=== PATIENT | male | born 1945 | race African-American/Black ===

== ENCOUNTER 2021-11-22 10:57 | Emergency (ER) | payer MEDICARE ==
[~2021-11-22] VITALS: Ht 177.8 cm; Wt 80.0 kg
[2021-11-22] MEDS ORDERED: AMIODARONE HCL 150 MG in DEXT 5% WATER 100 ML IV ONE (12:00)
[2021-11-22 12:29] LABS: BASOPHILS % 0.4 % (0.0-2.0); EOSINOPHILS % 1.7 % (0.0-5.0); HEMATOCRIT. 30.5 % (42.0-52.0); HEMOGLOBIN. 9.6 g/dL (14.0-18.0); LYMPHOCYTES % 33.8 % (20.0-50.0); MEAN CORPUSCULAR HEMOGLOBIN 31.3 pg (28.0-32.0); MEAN CORPUSCULAR VOLUME 99.3 fL (80.0-94.0); MEAN PLATELET VOLUME 9.4 fl (7.4-10.4); MONOCYTES % 6.8 % (2.0-8.0); NEUTROPHILS % 57.3 % (40.0-76.0); PLATELET 204 x1000/uL (130-400); RED BLOOD CELL COUNT 3.07 mill/uL (4.7-6.1); RED CELL DISTRIBUTION WIDTH 15.5 % (11.6-14.6)
[2021-11-22 12:30] LABS: CHLORIDE 114 mEq/L (98-107)
[2021-11-22 15:48] VITALS: BP 130/56
== END 2021-11-22 16:32 | disposition short-term general hospital (02) ==
LOC: ER 10:57 → CANBEDREQ 22:34
DX: R55 Syncope and collapse (principal); S00.83XA Contusion of other part of head, initial encounter; W01.198A Fall on same level from slipping, tripping and stumbling with subsequent striking against other object, initial encounter; Y93.01 Activity, walking, marching and hiking; Y92.510 Bank as the place of occurrence of the external cause; R00.0 Tachycardia, unspecified; D64.9 Anemia, unspecified; N28.9 Disorder of kidney and ureter, unspecified; R79.89 Other specified abnormal findings of blood chemistry; Z20.822 Contact with and (suspected) exposure to COVID-19; I44.7 Left bundle-branch block, unspecified; E11.9 Type 2 diabetes mellitus without complications
CPT/HCPCS: 36415; 71045; 80053; 82962; 83880; 84484; 85025; 87426; 93005; 99291; C9803; J0282; J7060

== ENCOUNTER 2022-11-23 19:45 | Inpatient (IN) | payer MEDICARE ==
[~2022-11-23] VITALS: Ht 175.3 cm; Wt 74.8 kg
[~2022-11-23 19:45] MED LIST: ALLO100T57 PO; APIX5TAB PO; CARV3.1242 MT; COR12 PO; FAMO20TA8 PO; FURO20TA4 PO; METF-414 MT; METR-167 MT; POTA-189 PO
[2022-11-23 22:02] LABS: HEMATOCRIT. 22.4 % (42.0-52.0); HEMOGLOBIN. 7.1 g/dL (14.0-18.0); MEAN CORPUSCULAR HEMOGLOBIN 31.4 pg (28.0-32.0); MEAN CORPUSCULAR HGB CONC 31.7 g/dL (31.0-37.0); MEAN PLATELET VOLUME 9.4 fl (7.4-10.4); PLATELET 357 x1000/uL (130-400); RED BLOOD CELL COUNT 2.26 mill/uL (4.7-6.1); RED CELL DISTRIBUTION WIDTH 20.7 % (11.6-14.6); WHITE BLOOD COUNT 19.4 x1000/uL (4.5-11.0)
[2022-11-23 22:03] LABS: DIFFERENTIAL COMMENT 1
[2022-11-23 22:17] LABS: CHLORIDE 112 mEq/L (98-107); INDEX HEMOLYSI 1 (1-3); INDEX ICTERIC 1 (1-4); INDEX LIPEMIC 1 (1-3); POTASSIUM 3.7 mEq/L (3.5-5.1); SODIUM 144 mEq/L (136-145)
[2022-11-23 22:27] LABS: ALANINE AMINOTRANSFERASE 11 IU/L (13-61); ALBUMIN 1.9 g/dL (3.4-5.0); ASPARTATE AMINOTRANSFERASE 27 IU/L (15-37); BILIRUBIN TOTAL 1.1 mg/dL (0.1-1.0); CALCIUM 7.7 mg/dL (8.5-10.1); CARBON DIOXIDE 28 mEq/L (21-32); CREATININE 1.6 mg/dL (0.6-1.3); GLUCOSE 80 mg/dL (70-105); PROTEIN TOTAL 5.8 g/dL (6.0-8.3); UREA NITROGEN BLOOD 16 mg/dL (7-21)
[2022-11-23 22:34] LABS: TROPONIN I HIGH SENSITIVITY 107 ng/L (<78)
[2022-11-23 22:42] LABS: PLATELET ESTIMATE NORMAL
[2022-11-23 22:43] LABS: ANISOCYTOSIS 2+; HYPOCHROMASIA 1+; OVALOCYTES 1+
[2022-11-24] MEDS ORDERED: SODIUM CHLORIDE 0.9% 1,000 ML IV ONE (00:15)
[2022-11-24] MEDS ORDERED: METRONIDAZOLE 500 MG PREMIX 100 ML IV ONE (00:15)
[2022-11-24] MEDS ORDERED: CEFEPIME 2,000 MG in DEXT 5% WATER 100 ML IV ONE (00:15)
[2022-11-24] MEDS ORDERED: ACETAMINOPHEN 325MG TABLET PO PRN ×2 (09:15)
[2022-11-24] MEDS ORDERED: ONDANSETRON HCL 4MG/2ML INJ IV PRN (09:15)
[2022-11-24] MEDS ORDERED: ENOXAPARIN 40MG/0.4ML SYR SUBCUT SCH (09:15)
[2022-11-24] MEDS: ALLOPURINOL 100 MG TABLET PO SCH (09:30)
[2022-11-24] MEDS: FAMOTIDINE 20MG TABLET PO SCH (09:30)
[2022-11-24] MEDS: CARVEDILOL 12.5MG TABLET PO SCH ×2 (09:30→17:00)
[2022-11-24] MEDS: FUROSEMIDE 20MG TABLET PO SCH (09:30)
[2022-11-24] MEDS: METRONIDAZOLE 500MG TABLET PO SCH ×2 (10:00→22:12)
[2022-11-24 16:04] VITALS: BP 132/82; PULSE 72; RESP 20; TEMP 97.8
[2022-11-24 16:30] VITALS: BP 132/82; PULSE 78; RESP 22; TEMP 98.2
[2022-11-24 20:00] VITALS: BP 99/62; PULSE 80; RESP 18; TEMP 97
[2022-11-24] MEDS ORDERED: CEFTRIAXONE 2GM/50ML (ADDEASE) 50 ML IV SCH (22:30)
[2022-11-25] VITALS: BP 103/75; PULSE 101; RESP 20; TEMP 97.1
[2022-11-25 04:00] VITALS: BP 139/70; PULSE 109; RESP 20; TEMP 97
[2022-11-25 08:00] VITALS: BP 125/61; PULSE 98; RESP 20; TEMP 97.5
[2022-11-25] MEDS: CEFTRIAXONE 2 G in DEXTROSE 5% WATER 50 ML IV SCH ×2 (09:00→11:17)
[2022-11-25] MEDS: FUROSEMIDE 20MG TABLET PO SCH (11:16)
[2022-11-25] MEDS: METRONIDAZOLE 500MG TABLET PO SCH ×2 (11:16→22:08)
[2022-11-25] MEDS: FAMOTIDINE 20MG TABLET PO SCH (11:16)
[2022-11-25] MEDS: ALLOPURINOL 100 MG TABLET PO SCH (11:16)
[2022-11-25] MEDS: CARVEDILOL 12.5MG TABLET PO SCH ×2 (11:16→17:44)
[2022-11-25 12:00] VITALS: BP 140/71; PULSE 83; RESP 20; TEMP 97.9
[2022-11-25 16:00] VITALS: BP 139/58; PULSE 75; RESP 20; TEMP 98.4
[2022-11-25 20:00] VITALS: BP 122/69; PULSE 99; RESP 18; TEMP 98.5
[2022-11-26] VITALS (8 sets, daily range): BP systolic 129–158; BP diastolic 72–93; PULSE 80–103; RESP 18–20; TEMP 97.8–99.7
[2022-11-26 07:21] LABS: MEAN CORPUSCULAR HEMOGLOBIN 31.9 pg (28.0-32.0); MEAN CORPUSCULAR HGB CONC 31.9 g/dL (31.0-37.0); MEAN CORPUSCULAR VOLUME 99.9 fL (80.0-94.0); MEAN PLATELET VOLUME 9.9 fl (7.4-10.4); PLATELET 293 x1000/uL (130-400); RED BLOOD CELL COUNT 2.05 mill/uL (4.7-6.1); RED CELL DISTRIBUTION WIDTH 21.1 % (11.6-14.6); WHITE BLOOD COUNT 15.7 x1000/uL (4.5-11.0)
[2022-11-26 07:31] LABS: CALCIUM 7.8 mg/dL (8.5-10.1); POTASSIUM 3.2 mEq/L (3.5-5.1)
[2022-11-26 07:35] LABS: CREATININE 1.4 mg/dL (0.6-1.3); PHOSPHORUS 2.9 mg/dL (2.5-4.9)
[2022-11-26 08:28] LABS: DIFFERENTIAL COMMENT 1
[2022-11-26 08:32] LABS: HEMATOCRIT. 20.5 % (42.0-52.0); HEMOGLOBIN. 6.5 g/dL (14.0-18.0)
[2022-11-26] MEDS: FUROSEMIDE 20MG TABLET PO SCH (09:23)
[2022-11-26] MEDS: ALLOPURINOL 100 MG TABLET PO SCH (09:24)
[2022-11-26] MEDS: CARVEDILOL 12.5MG TABLET PO SCH ×2 (09:24→17:52)
[2022-11-26] MEDS: CEFTRIAXONE 2 G in DEXTROSE 5% WATER 50 ML IV SCH (09:24)
[2022-11-26] MEDS: METRONIDAZOLE 500MG TABLET PO SCH ×2 (09:24→21:00)
[2022-11-26] MEDS: FAMOTIDINE 20MG TABLET PO SCH (09:24)
[2022-11-26] MEDS ORDERED: POTASSIUM CHLORIDE 20MEQ TABLET SR PO NR (09:30)
[2022-11-26 14:12] LABS: ANISOCYTOSIS 2+; HYPOCHROMASIA 2+
[2022-11-26 14:13] LABS: PLATELET ESTIMATE NORMAL
[2022-11-27] VITALS (8 sets, daily range): BP systolic 130–159; BP diastolic 74–92; PULSE 82–96; RESP 18–20; TEMP 97.8–99.5
[2022-11-27 08:20] LABS: HEMATOCRIT 27.9 % (42.0-52.0); HEMOGLOBIN 9.1 g/dL (14.0-18.0)
[2022-11-27] MEDS: CEFTRIAXONE 2 G in DEXTROSE 5% WATER 50 ML IV SCH (08:33)
[2022-11-27] MEDS: CARVEDILOL 12.5MG TABLET PO SCH ×2 (08:33→16:55)
[2022-11-27] MEDS: METRONIDAZOLE 500MG TABLET PO SCH ×2 (08:33→21:16)
[2022-11-27] MEDS: ALLOPURINOL 100 MG TABLET PO SCH (08:33)
[2022-11-27] MEDS: FAMOTIDINE 20MG TABLET PO SCH (08:34)
[2022-11-27] MEDS: FUROSEMIDE 20MG TABLET PO SCH (08:34)
[2022-11-27] MEDS ORDERED: LIDOCAINE HCL 1% 10 MG/ML 10ML VIAL ONE (10:31)
[2022-11-27 22:15] LABS: HEMATOCRIT. 26.8 % (42.0-52.0); HEMOGLOBIN. 8.7 g/dL (14.0-18.0); INR 1.3; MEAN CORPUSCULAR HEMOGLOBIN 31.6 pg (28.0-32.0); MEAN CORPUSCULAR HGB CONC 32.3 g/dL (31.0-37.0); MEAN CORPUSCULAR VOLUME 97.7 fL (80.0-94.0); MEAN PLATELET VOLUME 10.1 fl (7.4-10.4); PLATELET 267 x1000/uL (130-400); PROTHROMBIN TIME 13.4 sec (9.6-11.0); RED BLOOD CELL COUNT 2.74 mill/uL (4.7-6.1); RED CELL DISTRIBUTION WIDTH 21.4 % (11.6-14.6); WHITE BLOOD COUNT 12.3 x1000/uL (4.5-11.0)
[2022-11-27 22:19] LABS: CHLORIDE 116 mEq/L (98-107); INDEX HEMOLYSI 1 (1-3); INDEX ICTERIC 1 (1-4); INDEX LIPEMIC 1 (1-3); POTASSIUM 3.5 mEq/L (3.5-5.1); SODIUM 144 mEq/L (136-145)
[2022-11-27 22:24] LABS: CALCIUM 8.2 mg/dL (8.5-10.1); CARBON DIOXIDE 23 mEq/L (21-32); CREATININE 1.3 mg/dL (0.6-1.3); GLUCOSE 95 mg/dL (70-105); PHOSPHORUS 2.7 mg/dL (2.5-4.9); UREA NITROGEN BLOOD 16 mg/dL (7-21)
[2022-11-27 22:26] LABS: DIFFERENTIAL COMMENT 1
[2022-11-28] VITALS: BP 118/66; PULSE 98; RESP 18; TEMP 98.6
[2022-11-28 04:00] VITALS: BP 139/80; PULSE 89; RESP 20; TEMP 98.6
[2022-11-28 05:37] LABS: HEMATOCRIT. 26.1 % (42.0-52.0); HEMOGLOBIN. 8.7 g/dL (14.0-18.0); MEAN CORPUSCULAR HEMOGLOBIN 31.9 pg (28.0-32.0); MEAN CORPUSCULAR HGB CONC 33.3 g/dL (31.0-37.0); MEAN CORPUSCULAR VOLUME 95.8 fL (80.0-94.0); MEAN PLATELET VOLUME 10.1 fl (7.4-10.4); PLATELET 223 x1000/uL (130-400); RED BLOOD CELL COUNT 2.73 mill/uL (4.7-6.1); RED CELL DISTRIBUTION WIDTH 20.9 % (11.6-14.6); WHITE BLOOD COUNT 12.1 x1000/uL (4.5-11.0)
[2022-11-28 06:35] LABS: CHLORIDE 114 mEq/L (98-107); INDEX HEMOLYSI 1 (1-3); INDEX ICTERIC 1 (1-4); INDEX LIPEMIC 1 (1-3); POTASSIUM 3.3 mEq/L (3.5-5.1); SODIUM 145 mEq/L (136-145)
[2022-11-28 06:49] LABS: DIFFERENTIAL COMMENT 1
[2022-11-28 06:54] LABS: CALCIUM 7.6 mg/dL (8.5-10.1); CARBON DIOXIDE 24 mEq/L (21-32); CREATININE 1.3 mg/dL (0.6-1.3); GLUCOSE 127 mg/dL (70-105); PHOSPHORUS 2.7 mg/dL (2.5-4.9); UREA NITROGEN BLOOD 16 mg/dL (7-21)
[2022-11-28 08:00] VITALS: BP 156/85; PULSE 106; RESP 18; TEMP 97.8
[2022-11-28] MEDS: CEFTRIAXONE 2 G in DEXTROSE 5% WATER 50 ML IV SCH (08:37)
[2022-11-28] MEDS: ALLOPURINOL 100 MG TABLET PO SCH (08:37)
[2022-11-28] MEDS: FUROSEMIDE 20MG TABLET PO SCH (08:37)
[2022-11-28] MEDS: FAMOTIDINE 20MG TABLET PO SCH (08:37)
[2022-11-28] MEDS: METRONIDAZOLE 500MG TABLET PO SCH ×2 (08:37→21:45)
[2022-11-28] MEDS: CARVEDILOL 12.5MG TABLET PO SCH ×2 (08:37→16:50)
[2022-11-28] MEDS ORDERED: POTASSIUM CHLORIDE 20MEQ TABLET SR PO NR (10:30)
[2022-11-28 10:54] LABS: ANISOCYTOSIS 2+; PLATELET ESTIMATE NORMAL
[2022-11-28 12:00] VITALS: BP 150/57; PULSE 94; RESP 18; TEMP 100.1
[2022-11-28 16:00] VITALS: BP 113/83; PULSE 60; RESP 20; TEMP 99.6
[2022-11-28 17:04] LABS: PLATELET ESTIMATE NORMAL
[2022-11-28 17:05] LABS: ANISOCYTOSIS 2+; HYPOCHROMASIA 1+
[2022-11-28 17:06] LABS: OVALOCYTES 1+
[2022-11-29 04:00] VITALS: BP 89/50; PULSE 90; RESP 20; TEMP 97.1
[2022-11-29 07:29] LABS: MEAN CORPUSCULAR HEMOGLOBIN 30.7 pg (28.0-32.0); MEAN CORPUSCULAR HGB CONC 31.6 g/dL (31.0-37.0); MEAN CORPUSCULAR VOLUME 97.3 fL (80.0-94.0); MEAN PLATELET VOLUME 10.3 fl (7.4-10.4); PLATELET 206 x1000/uL (130-400); RED CELL DISTRIBUTION WIDTH 21.2 % (11.6-14.6); WHITE BLOOD COUNT 15.3 x1000/uL (4.5-11.0)
[2022-11-29 07:30] LABS: DIFFERENTIAL COMMENT 1
[2022-11-29 07:31] LABS: HEMATOCRIT. 33.1 % (42.0-52.0); HEMOGLOBIN. 10.4 g/dL (14.0-18.0)
[2022-11-29 08:00] VITALS: BP 182/91; PULSE 89; RESP 20; TEMP 97.6
[2022-11-29 08:33] LABS: CHLORIDE 114 mEq/L (98-107); INDEX HEMOLYSI 1 (1-3); INDEX ICTERIC 1 (1-4); INDEX LIPEMIC 1 (1-3); POTASSIUM 3.8 mEq/L (3.5-5.1); SODIUM 144 mEq/L (136-145)
[2022-11-29 08:38] LABS: CALCIUM 7.6 mg/dL (8.5-10.1); CARBON DIOXIDE 25 mEq/L (21-32); CREATININE 1.3 mg/dL (0.6-1.3); GLUCOSE 108 mg/dL (70-105); PHOSPHORUS 2.5 mg/dL (2.5-4.9); UREA NITROGEN BLOOD 18 mg/dL (7-21)
[2022-11-29] MEDS: CARVEDILOL 12.5MG TABLET PO SCH ×2 (09:35→17:20)
[2022-11-29] MEDS: FUROSEMIDE 20MG TABLET PO SCH (09:35)
[2022-11-29] MEDS: ALLOPURINOL 100 MG TABLET PO SCH (09:35)
[2022-11-29] MEDS: CEFTRIAXONE 2 G in DEXTROSE 5% WATER 50 ML IV SCH (09:35)
[2022-11-29] MEDS: FAMOTIDINE 20MG TABLET PO SCH (09:35)
[2022-11-29] MEDS: METRONIDAZOLE 500MG TABLET PO SCH ×2 (09:35→20:43)
[2022-11-29 12:00] VITALS: BP 117/80; PULSE 97; RESP 2; TEMP 97.2
[2022-11-29 16:00] VITALS: BP 159/90; PULSE 102; RESP 20; TEMP 97.2
[2022-11-29 16:41] LABS: ANISOCYTOSIS 1+; PLATELET ESTIMATE NORMAL
[2022-11-29 20:00] VITALS: BP 163/107; PULSE 76; RESP 22; TEMP 96.9
[2022-11-30] VITALS: BP 180/100; PULSE 69; RESP 20; TEMP 96.8
[2022-11-30 04:00] VITALS: BP 172/101; PULSE 77; RESP 20; TEMP 97
[2022-11-30 08:00] VITALS: BP 169/82; PULSE 110; RESP 20; TEMP 97.6
[2022-11-30] MEDS: FUROSEMIDE 20MG TABLET PO SCH (09:52)
[2022-11-30] MEDS: FAMOTIDINE 20MG TABLET PO SCH (09:52)
[2022-11-30] MEDS: METRONIDAZOLE 500MG TABLET PO SCH ×2 (09:52→21:23)
[2022-11-30] MEDS: ALLOPURINOL 100 MG TABLET PO SCH (09:52)
[2022-11-30] MEDS: CEFTRIAXONE 2 G in DEXTROSE 5% WATER 50 ML IV SCH (09:53)
[2022-11-30] MEDS: CARVEDILOL 12.5MG TABLET PO SCH ×2 (09:53→17:51)
[2022-11-30 12:00] VITALS: BP 165/81; PULSE 82; RESP 20; TEMP 97.3
[2022-11-30 16:00] VITALS: BP 156/72; PULSE 89; RESP 20; TEMP 97.4
[2022-11-30 20:00] VITALS: BP 150/99; PULSE 89; RESP 20; TEMP 97.2
[2022-12-01] VITALS: BP 136/89; PULSE 84; RESP 18; TEMP 97.8
[2022-12-01 04:00] VITALS: BP 149/82; PULSE 89; RESP 18; TEMP 99.7
[2022-12-01 08:00] VITALS: BP 123/71; PULSE 104; RESP 18
[2022-12-01] MEDS: METRONIDAZOLE 500MG TABLET PO SCH (08:55)
[2022-12-01] MEDS: CARVEDILOL 12.5MG TABLET PO SCH (08:55)
[2022-12-01] MEDS: FAMOTIDINE 20MG TABLET PO SCH (08:56)
[2022-12-01] MEDS: ALLOPURINOL 100 MG TABLET PO SCH (08:56)
[2022-12-01] MEDS: FUROSEMIDE 20MG TABLET PO SCH (08:56)
[2022-12-01] MEDS: CEFTRIAXONE 2 G in DEXTROSE 5% WATER 50 ML IV SCH (09:08)
[2022-12-01 16:00] VITALS: BP 140/87; PULSE 95; RESP 18
[2022-12-01 19:19] VITALS: BP 111/75; PULSE 74; TEMP 97.9; O2SAT 99
== END 2022-12-01 20:05 | DRG 871 ==
LOC: ER 20:39 → MICUSO 11-24 00:21 → 8WST 11-24 14:28
PROVIDERS: ADMIT Hospitalist; ATTEND Hospitalist
PROC: 30233N1 Transfusion of Nonautologous Red Blood Cells into Peripheral Vein, Percutaneous Approach (ICD-10-PCS; 2022-11-26)
PROC: 05H533Z Insertion of Infusion Device into Right Subclavian Vein, Percutaneous Approach (ICD-10-PCS; principal; 2022-11-27)
PROC: B546ZZA Ultrasonography of Right Subclavian Vein, Guidance (ICD-10-PCS; 2022-11-27)
DX: A41.9 Sepsis, unspecified organism (principal); E43 Unspecified severe protein-calorie malnutrition; I50.43 Acute on chronic combined systolic (congestive) and diastolic (congestive) heart failure; I21.A1 Myocardial infarction type 2; U07.1 COVID-19; D61.818 Other pancytopenia; E87.20 Acidosis, unspecified; M62.82 Rhabdomyolysis; M86.9 Osteomyelitis, unspecified; I13.0 Hypertensive heart and chronic kidney disease with heart failure and stage 1 through stage 4 chronic kidney disease, or unspecified chronic kidney disease; N17.9 Acute kidney failure, unspecified; D46.9 Myelodysplastic syndrome, unspecified; E86.0 Dehydration; I27.20 Pulmonary hypertension, unspecified; M10.9 Gout, unspecified; E11.65 Type 2 diabetes mellitus with hyperglycemia; E83.39 Other disorders of phosphorus metabolism; E87.6 Hypokalemia; I44.7 Left bundle-branch block, unspecified; R62.7 Adult failure to thrive; D70.9 Neutropenia, unspecified; E11.621 Type 2 diabetes mellitus with foot ulcer; E11.69 Type 2 diabetes mellitus with other specified complication; I08.1 Rheumatic disorders of both mitral and tricuspid valves; N18.9 Chronic kidney disease, unspecified; E11.22 Type 2 diabetes mellitus with diabetic chronic kidney disease; E11.42 Type 2 diabetes mellitus with diabetic polyneuropathy; I25.10 Atherosclerotic heart disease of native coronary artery without angina pectoris; I48.91 Unspecified atrial fibrillation; L97.529 Non-pressure chronic ulcer of other part of left foot with unspecified severity; R50.81 Fever presenting with conditions classified elsewhere; Z79.2 Long term (current) use of antibiotics; Z91.199 Patient's noncompliance with other medical treatment and regimen due to unspecified reason; Z95.810 Presence of automatic (implantable) cardiac defibrillator; Z79.899 Other long term (current) drug therapy; Z68.24 Body mass index [BMI] 24.0-24.9, adult
CPT/HCPCS: 36415; 36573; 71045; 80048; 80053; 83605; 83735; 84100; 84484; 85014; 85018; 85025; 85049; 85384; 86850; 86900; 86920; 87426; 92610; 93005; 99285; C1725; J0692; J0696; J3490; J7030; J7060; P9016